=== PATIENT | female | born 1945 | race Caucasian/White ===

== ENCOUNTER 2021-02-10 19:26 | Inpatient (IN) | payer MEDICARE ==
--- NOTE | 2021-02-10 20:09 | ED ---
General Adult HPI - General Chief complaint: Chest Pain Stated complaint: Chest Pain Time Seen by Provider: 02/10/21 19:53 Source: patient, RN notes reviewed, old records reviewed Mode of arrival: ambulatory - History of Present Illness Initial comments: 75-year-old female who had developed anterior chest pain approximately one hour prior to arrival. 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 She did report a mild discomfort in her upper back as well. She describes the pain as a discomfort. She did not vomit. No diaphoresis. She states she did not feel anxious at the time. She has no previous history of CAD. - Related Data Allergies Allergy/AdvReac Type Severity Reaction Status Date / Time clindamycin Allergy Anaphylaxis Verified 02/10/21 19:44 ciprofloxacin [From Cipro] AdvReac Rash/Hives Verified 02/10/21 19:44 minocycline AdvReac Nausea & Verified 02/10/21 19:44 Vomiting & Diarrhea nitrofurantoin AdvReac Rash/Hives Verified 02/10/21 19:44 [From Macrobid] Review of Systems ROS Statement: Those systems with pertinent positive or pertinent negative responses have been documented in the HPI. ROS Other: All systems not noted in ROS Statement are negative. Past Medical History Past Medical History: Hyperlipidemia History of Any Multi-Drug Resistant Organisms: None Reported Past Surgical History: Hysterectomy, Orthopedic Surgery Past Psychological History: No Psychological Hx Reported Smoking Status: Never smoker Past Alcohol Use History: None Reported Past Drug Use History: None Reported General Exam General appearance: alert, in no apparent distress Head exam: Present: atraumatic, normocephalic Eye exam: Present: normal appearance, PERRL ENT exam: Present: normal exam Neck exam: Present: normal inspection. Absent: tenderness, meningismus Respiratory exam: Present: normal lung sounds bilaterally. Absent: respiratory distress, wheezes Cardiovascular Exam: Present: regular rate, normal rhythm GI/Abdominal exam: Present: soft. Absent: distended, tenderness, guarding Extremities exam: Present: normal inspection, normal capillary refill. Absent: pedal edema Neurological exam: Present: alert, oriented X3, CN II-XII intact. Absent: motor sensory deficit Psychiatric exam: Present: normal affect, normal mood Skin exam: Present: warm, dry, intact. Absent: cyanosis, diaphoretic Course Vital Signs 02/10/21 19:37 Temperature 98 F Pulse Rate 79 Respiratory 19 Rate Blood Pressure 154/88 O2 Sat by Pulse 99 Oximetry EKG Findings - EKG Comments: EKG Findings:: EKG: Normal sinus rhythm, left bundle branch block, rate of 81, [place] interval 156, QRS duration 144, QTC 464. Old for comparison. Does not meet Scarboza criteria. Medical Decision Making - Medical Decision Making 75-year-old female presenting with anterior chest pain. Patient well-appearing on initial evaluation with minimal discomfort. EKG is sinus rhythm without ST segment elevation. Chest x-ray is clear. She has a normal CBC, normal CMP, initial troponin is 1.8. The patient is reevaluated she states her pain is nearly completely resolved. I did discuss case both with the admitting physician Dr. Carrasquillo, and with the maintenance and engineering manager Dr. Arguelles. She's given aspirin, Lipitor, heparin in the emergency department. Echo will be ordered. - Lab Data Result diagrams: 02/10/21 20:05 02/10/21 20:05 Lab Results 02/10/21 02/10/21 02/10/21 Range/Units 20:05 20:05 20:05 WBC 7.7 (3.8-10.6) k/uL RBC 4.54 (3.80-5.40) m/uL Hgb 13.6 (11.4-16.0) gm/dL Hct 40.3 (34.0-46.0) % MCV 88.7 (80.0-100.0) fL MCH 30.0 (25.0-35.0) pg MCHC 33.8 (31.0-37.0) g/dL RDW 13.0 (11.5-15.5) % Plt Count 207 (150-450) k/uL MPV 8.2 Neutrophils % 66 % Lymphocytes % 27 % Monocytes % 3 % Eosinophils % 2 % Basophils % 1 % Neutrophils # 5.1 (1.3-7.7) k/uL Lymphocytes # 2.1 (1.0-4.8) k/uL Monocytes # 0.2 (0-1.0) k/uL Eosinophils # 0.2 (0-0.7) k/uL Basophils # 0.0 (0-0.2) k/uL PT 10.3 (9.0-12.0) sec INR 1.0 (<1.2) APTT 23.5 (22.0-30.0) sec Sodium 138 (137-145) mmol/L Potassium 3.1 L (3.5-5.1) mmol/L Chloride 98 (98-107) mmol/L Carbon Dioxide 29 (22-30) mmol/L Anion Gap 11 mmol/L BUN 23 H (7-17) mg/dL Creatinine 0.99 (0.52-1.04) mg/dL Est GFR (CKD-EPI)AfAm 65 (>60 ml/min/1.73 sqM) Est GFR (CKD-EPI)NonAf 57 (>60 ml/min/1.73 sqM) Glucose 161 H (74-99) mg/dL Calcium 9.9 (8.4-10.2) mg/dL Magnesium 1.8 (1.6-2.3) mg/dL Total Bilirubin 0.5 (0.2-1.3) mg/dL AST 31 (14-36) U/L ALT 21 (4-34) U/L Alkaline Phosphatase 100 (38-126) U/L Troponin I (0.000-0.034) ng/mL NT-Pro-B Natriuret Pep pg/mL Total Protein 8.0 (6.3-8.2) g/dL Albumin 4.4 (3.5-5.0) g/dL Lipase 104 (23-300) U/L 02/10/21 02/10/21 Range/Units 20:05 20:05 WBC (3.8-10.6) k/uL RBC (3.80-5.40) m/uL Hgb (11.4-16.0) gm/dL Hct (34.0-46.0) % MCV (80.0-100.0) fL MCH (25.0-35.0) pg MCHC (31.0-37.0) g/dL RDW (11.5-15.5) % Plt Count (150-450) k/uL MPV Neutrophils % % Lymphocytes % % Monocytes % % Eosinophils % % Basophils % % Neutrophils # (1.3-7.7) k/uL Lymphocytes # (1.0-4.8) k/uL Monocytes # (0-1.0) k/uL Eosinophils # (0-0.7) k/uL Basophils # (0-0.2) k/uL PT (9.0-12.0) sec INR (<1.2) APTT (22.0-30.0) sec Sodium (137-145) mmol/L Potassium (3.5-5.1) mmol/L Chloride (98-107) mmol/L Carbon Dioxide (22-30) mmol/L Anion Gap mmol/L BUN (7-17) mg/dL Creatinine (0.52-1.04) mg/dL Est GFR (CKD-EPI)AfAm (>60 ml/min/1.73 sqM) Est GFR (CKD-EPI)NonAf (>60 ml/min/1.73 sqM) Glucose (74-99) mg/dL Calcium (8.4-10.2) mg/dL Magnesium (1.6-2.3) mg/dL Total Bilirubin (0.2-1.3) mg/dL AST (14-36) U/L ALT (4-34) U/L Alkaline Phosphatase (38-126) U/L Troponin I 1.830 H* (0.000-0.034) ng/mL NT-Pro-B Natriuret Pep 200 pg/mL Total Protein (6.3-8.2) g/dL Albumin (3.5-5.0) g/dL Lipase (23-300) U/L Critical Care Time Critical Care Time: Yes Total Critical Care Time: 35 Disposition Clinical Impression: Acute non-ST elevation myocardial infarction (NSTEMI) Disposition: [facility] Condition: Stable Is patient prescribed a controlled substance at d/c from ED?: No Referrals: Nonstaff,Physician [Primary Care Provider] - 1-2 days Decision to Admit Reason: Admit from EC Decision Date: 02/10/21 Decision Time: 21:51
[2021-02-10] MEDS ORDERED: ASPIRIN 325 MG TAB PO STA (20:10)
[2021-02-10 20:38] LABS: Basophils % (A) 1 %; Eosinophils # (A) 0.2 k/uL (0-0.7); Eosinophils % (A) 2 %; HCT 40.3 % (34.0-46.0); HGB 13.6 gm/dL (11.4-16.0); Lymphocytes # (A) 2.1 k/uL (1.0-4.8); Lymphocytes % (A) 27 %; MCHC 33.8 g/dL (31.0-37.0); MCV 88.7 fL (80.0-100.0); Mean Platelet Volume 8.2; Monocytes # (A) 0.2 k/uL (0-1.0); Monocytes % (A) 3 %; Neutrophils # (A) 5.1 k/uL (1.3-7.7); Neutrophils % (A) 66 %; Platelet Count 207 k/uL (150-450); RBC 4.54 m/uL (3.80-5.40); WBC 7.7 k/uL (3.8-10.6)
[2021-02-10 20:40] LABS: Albumin 4.4 g/dL (3.5-5.0); Calcium 9.9 mg/dL (8.4-10.2); Magnesium 1.8 mg/dL (1.6-2.3); Potassium 3.1 mmol/L (3.5-5.1); Total Bilirubin 0.5 mg/dL (0.2-1.3)
[2021-02-10 20:44] LABS: Partial Thromboplastin Time 23.5 sec (22.0-30.0); Prothrombin Time 10.3 sec (9.0-12.0)
[2021-02-10] MEDS ORDERED: POTASSIUM CHLORIDE ER 20 MEQ TAB.ER PO STA (21:05)
--- NOTE | 2021-02-10 21:16 | XR ---
EXAMINATION TYPE: XR chest 2V DATE OF EXAM: 02/10/2021 COMPARISON: NONE HISTORY: Chest pain TECHNIQUE: 2 views FINDINGS: Heart is normal. Lungs are clear of infiltrate. There is no heart failure. There are no hil ar masses. Thoracic aorta is atheromatous. There are chest leads. IMPRESSION: No active cardiopulmonary disease. Normal heart.
[2021-02-10] MEDS ORDERED: HEPARIN SODIUM 1,000 UN/ML (10ML VL) IV ONE (21:34)
[2021-02-10] MEDS ORDERED: HEPARIN SODIUM 1,000 UN/ML (10ML VL) IV PRN (21:34)
[2021-02-10] MEDS ORDERED: NITROGLYCERIN SL TABS 0.4 MG TAB SUBLINGUAL PRN (21:34)
[2021-02-10] MEDS ORDERED: HEPARIN SOD,PORK IN 0.45% NACL 25,000 UNIT in 0.45% NACL 1 250ML.BAG IV SCH (21:45)
[2021-02-11] MEDS: ATORVASTATIN 80 MG TAB PO SCH ×2 (00:12→08:24)
[2021-02-11] MEDS ORDERED: SODIUM CHLORIDE 0.9% 1,000 ML IV ONE (01:17)
[2021-02-11] MEDS ORDERED: LIDOCAINE 1% INJ 10MG/ML (20 ML MDV) ONE (01:29)
[2021-02-11] MEDS ORDERED: VERAPAMIL 2.5 MG/ML 2 ML AMP ONE (01:30)
[2021-02-11] MEDS ORDERED: fentaNYL (PF) 50 MCG/ML 2 ML AMP ONE (01:31)
[2021-02-11] MEDS ORDERED: fentaNYL (PF) 50 MCG/ML 2 ML AMP IV ONE (01:32)
[2021-02-11] MEDS ORDERED: LIDOCAINE 1% INJ 10MG/ML (20 ML MDV) SQ ONE (01:35)
[2021-02-11] MEDS ORDERED: VERAPAMIL SYRINGE (5 MG/10 ML) INTRAARTER ONE (01:37)
[2021-02-11] MEDS ORDERED: HEPARIN SODIUM 1,000 UN/ML (10ML VL) ONE (01:44)
[2021-02-11] MEDS ORDERED: MIDAZOLAM 2 MG/2 ML VIAL IV ONE (01:45)
[2021-02-11] MEDS ORDERED: CLOPIDOGREL 75 MG TAB ONE (01:51)
[2021-02-11] MEDS ORDERED: CLOPIDOGREL 75 MG TAB PO ONE (01:52)
[2021-02-11] MEDS ORDERED: IOPAMIDOL-370 125ML BTL INJ ONE (01:52)
[2021-02-11] MEDS ORDERED: RX INFO: IV CONTRAST WAS GIVEN 1 EACH MISC MISCELLANE PRN (02:03)
[2021-02-11] MEDS ORDERED: SODIUM CHLORIDE 0.9% 1,000 ML IV SCH (02:15)
[2021-02-11 02:27] LABS: Glucose,Whole Blood 137 mg/dL (75-99)
--- NOTE | 2021-02-11 02:31 | P.HPIM ---
History of Present Illness H&P Date: 02/10/21 The patient is 75-year-old female with a PMH of hyperlipidemia who presented to the emergency room with sudden onset of chest pain. 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 She denied having any associated symptoms including shortness of breath, nausea, diaphoresis, or palpitations. She told her who brought her into the emergency room. At time of interview, the patient reports that her pain has improved to a 2 out of 10 but continues to be aching, nonradiating, and co nstant. She denied any additional complaints. Denied fever, chills, cough. Denied headaches, weakness, numbness, tingling. Denied a personal history of heart disease but does state that she has a significant family history of heart disease with multiple first and second-degree relatives passing away early in life from heart attacks. Chest x-ray in the emergency room was unremarkable. EKG revealed a normal sinus rhythm at 81 bpm with a left bundle branch block (no prior EKGs available for comparison). Laboratory evaluation was remarkable for potassium 3.1 and troponin I of 1.830. The patient was started on heparin infusion and given aspirin and admitted for further management. Review of systems: Pertinent positives and negatives as discussed in HPI, a complete review of systems was performed and all other systems are negative. Physical examination: General: non toxic, no distress, appears at stated age, overweight Derm: no unusual rashes/lesions no unusual ecchymoses, warm, dry Head: atraumatic, normocephalic, symmetric Eyes: EOMI, no lid lag, anicteric sclera, pupils equal round reactive to light ENT: Nose and ears atraumatic, no thrush, no pharyngeal erythema Neck: No thyromegaly, no cervical lymphadenopathy, trachea midline, supple Mouth: no lip lesion, mucus membranes moist Cardiovascular: S1S2 reg, no murmur, positive posterior tibial pulse bilateral, no edema, capillary refill less than 2 seconds Lungs: CTA bilateral, no rhonchi, no rales , no accessory muscle use Abdominal: soft, nontender to palpation, no guarding, no appreciable organomegaly, normal bowel sounds Ext: no gross muscle atrophy, muscle strength 5 out of 5 in all 4 extremities grossly, no contractures, Neuro: CN II-XI grossly intact, light touch intact all 4 extremities, finger to nose within normal limits, Psych: Alert, oriented, appropriate affect Assessment/plan Non-ST elevation PR -Continue to trend troponin -Continue with heparin infusion, aspirin, statin -Cardiology consulted -Cardiac monitoring Hypokalemia -Replace and monitor DVT prophylaxis -Heparin infusion The patient is admitted with an anticipated greater than 2 midnight stay for evaluation of NSTEMI CODE STATUS: Full Code Discussed with: Patient Anticipated discharge date: 2-[address]: Home Past Medical History Past Medical History: Hyperlipidemia History of Any Multi-Drug Resistant Organisms: None Reported Past Surgical History: Hysterectomy, Orthopedic Surgery Past Psychological History: No Psychological Hx Reported Smoking Status: Never smoker Past Alcohol Use History: None Reported Past Drug Use History: None Reported - Past Family History Father Family Medical History: Coronary Artery Disease (CAD) Medications and Allergies Home Medications Medication Instructions Recorded Confirmed Type Latanoprost/Pf [Latanoprost 0.005% 1 drop BOTH EYES HS 02/10/21 02/10/21 History Eye Drop] Levothyroxine Sodium [Synthroid] 50 mcg PO DAILY 02/10/21 02/10/21 History Omeprazole [PriLOSEC] 20 mg PO DAILY 02/10/21 02/10/21 History aMILoride/HYDROCHLOROTHIAZIDE 1 tab PO DAILY 02/10/21 02/10/21 History [aMILoride/HYDROCHLOROTHIAZIDE 5-50 mg] Allergies Allergy/AdvReac Type Severity Reaction Status Date / Time clindamycin Allergy Anaphylaxis Verified 02/10/21 19:44 ciprofloxacin [From Cipro] AdvReac Rash/Hives Verified 02/10/21 19:44 minocycline AdvReac Nausea & Verified 02/10/21 19:44 Vomiting & Diarrhea nitrofurantoin AdvReac Rash/Hives Verified 02/10/21 19:44 [From Macrobid] Physical Exam Vitals: Vital Signs Temp Pulse Resp BP Pulse Ox 02/10/21 23:11 84 18 140/99 94 L 02/10/21 19:37 98 F 79 19 154/88 99 Intake and Output 02/10/21 02/10/21 02/11/21 14:59 22:59 06:59 Other: Weight 86.183 kg Results CBC & Chem 7: 02/10/21 20:05 02/10/21 20:05 Labs: Abnormal Lab Results - Last 24 Hours (Table) 02/10/21 02/10/21 Range/Units 20:05 20:05 Potassium 3.1 L (3.5-5.1) mmol/L BUN 23 H (7-17) mg/dL Glucose 161 H (74-99) mg/dL Troponin I 1.830 H* (0.000-0.034) ng/mL
[2021-02-11] MEDS: POTASSIUM CHLORIDE 20 MEQ in WATER FOR INJECTION 1 100ML.BAG IVPB SCH ×2 (02:37→10:10)
[2021-02-11 03:19] LABS: Basophils # (A) 0.1 k/uL (0-0.2); Basophils % (A) 1 %; Eosinophils # (A) 0.2 k/uL (0-0.7); Eosinophils % (A) 2 %; HGB 14.3 gm/dL (11.4-16.0); Lymphocytes % (A) 17 %; MCH 29.9 pg (25.0-35.0); MCHC 34.1 g/dL (31.0-37.0); MCV 87.7 fL (80.0-100.0); Mean Platelet Volume 8.4; Monocytes # (A) 0.3 k/uL (0-1.0); Monocytes % (A) 3 %; Neutrophils % (A) 77 %; Platelet Count 234 k/uL (150-450); RBC 4.79 m/uL (3.80-5.40); RDW 13.6 % (11.5-15.5); WBC 11.7 k/uL (3.8-10.6)
[2021-02-11] MEDS: POTASSIUM CHLORIDE ER 20 MEQ TAB.ER PO SCH ×4 (04:05→10:07)
[2021-02-11 04:13] LABS: Partial Thromboplastin Time 117.9 sec (22.0-30.0)
[2021-02-11] MEDS: LEVOTHYROXINE 50 MCG TAB PO SCH (05:54)
[2021-02-11] MEDS: METOPROLOL TARTRATE 25 MG TAB PO SCH ×2 (08:25→20:56)
[2021-02-11] MEDS: CLOPIDOGREL 75 MG TAB PO SCH (08:25)
[2021-02-11] MEDS: ASPIRIN 81 MG PO SCH (08:25)
[2021-02-11] MEDS ORDERED: lisinopriL 5 MG TAB PO SCH (09:00)
[2021-02-11] MEDS ORDERED: ASPIRIN 325 MG TAB PO SCH (09:00)
[2021-02-11] MEDS ORDERED: FUROSEMIDE 20 MG TAB PO SCH (09:00)
[2021-02-11] MEDS: SPIRONOLACTONE 25 MG TAB PO SCH ×2 (10:08→11:29)
--- NOTE | 2021-02-11 10:39 | CONS ---
CONSULTATION Mrs. Rosas is a 75-year-old female who was visiting our area from [place]. She has no history of cardiac disease. She was in a wedding, and after having an emotional time, she felt chest discomfort that persisted. She came into the emergency room. At the time of her evaluation initially, according to the emergency room, her pain had almost resolved. She had an EKG consistent with left bundle branch block. Her troponin was 1. During the night, patient had some worsening chest discomfort and some T-wave inversions in the lateral leads on her EKG. In view of that, the patient was further evaluated. The patient is usually active physically, has no exertional chest discomfort or dyspnea. She denies any dizziness or palpitations. No syncope. No PND, orthopnea or peripheral edema. She has no history of hypertension, hyperlipidemia or diabetes. No family history of premature coronary artery disease and she is a nonsmoker. MEDICATIONS: Her medications at home include Synthroid, omeprazole and hydrochlorothiazide. REVIEW OF SYSTEMS: RESPIRATORY SYSTEM: She has no documented history of asthma, emphysema. GI SYSTEM: No recent GI bleeding. No peptic ulcer disease. SYSTEM: No dysuria or hematuria. NERVOUS SYSTEM: No history of stroke or seizure. PHYSICAL EXAMINATION: She is a 75-year-old female, alert, oriented, in no apparent distress. Blood pressure running initially in the 150s with a heart rate in the 90s. Patient was examined in the cardiac catheterization laboratory. HEAD: Normocephalic. EYES: Sclerae anicteric. NECK: Good carotid upstroke. No bruit. No jugular venous distention. LUNGS: Clear to auscultation. HEART: Regular rate and rhythm. S1, S2. No S3. No rub or gallop. ABDOMEN: Soft, nontender. Positive bowel sounds. No organomegaly. EXTREMITIES: No edema. Intact distal pulses. LAB DATA: Initial troponin 1.8; subsequently 5.0. NT proBNP of 200. BUN and creatinine 23 and 0.99. Potassium 3.1, hemoglobin of 13.6, white blood cells of 7.7. EKG revealed a left bundle branch block with left axis deviation and nonspecific ST-T wave changes. Subsequent EKG showed T-wave inversion in the lateral precordial leads with persistent intraventricular conduction delay. IMPRESSION: 1. Myocardial infarction. Patient has left bundle branch block of unknown duration. There is evolution of her EKG and she has some worsening chest discomfort. 2. Hypothyroidism. RECOMMENDATIONS: From the cardiac standpoint, I have recommend proceeding with coronary angiography to assess her status and guide her treatment. The rationale behind the procedure, its risks and complications were discussed with the patient, who was in full understanding and agreement. Thank you for this consult. Will follow with you. SONIA / REBECA: [id number] / LIZ
--- NOTE | 2021-02-11 10:42 | CC ---
CARDIAC CATHETERIZATION REPORT Mrs. Rosas is a 75-year-old female who presented to the emergency room with symptoms of chest discomfort. She had a left bundle branch block of unknown duration. Initial troponin was 1. Subsequently she had some worsening chest discomfort and T-wave inversion in the lateral precordial leads. In view of that, recommendation was made regarding cardiac catheterization. The procedure as well as its risks and complications were discussed with the patient, who was in full understanding and agreement. PROCEDURE DESCRIPTION: The patient was brought to the specialist employee labor relations after receiving fentanyl and Benadryl and achieving a moderate conscious sedated state. Using Xylocaine anesthesia and Seldinger technique, a 6-Luxembourger sheath was introduced in the right radial artery. Selective right and left coronary angiography was performed using 5-Luxembourger 3.5 bend right Patricia and 6-Luxembourger FL3.5 guiding catheter. Multiple views were taken of the arteries, including hemiaxial views. Following that, a 5-Luxembourger tight pigtail catheter was introduced in the left ventricle and a 30-degree BELLAMY view of the left ventricle was obtained. Following that, catheter and sheath were removed. Hemostasis was obtained with deployment of a TR band. There was no immediate complication. Patient was returned to her room in stable condition. Of note, the patient received 4500 units of intravenous heparin and intraarterial verapamil. FINDINGS: LEFT MAIN: This is a large-sized vessel bifurcating into left circumflex and left anterior descending artery. Left main coronary artery has no evidence of obstructive coronary artery disease. LEFT ANTERIOR DESCENDING ARTERY: This is a large-sized vessel reaching to the apex with a wrap around the apex segment. The left anterior descending artery gives rise to two diagonal branches of moderate caliber. The left anterior descending artery has a 10% plaque proximally. The rest of the vessel has no high-grade stenosis. LEFT CIRCUMFLEX: This is a large nondominant vessel giving rise to three obtuse marginal branches. The second and third ones are large in caliber. The left circumflex as well as its branches have no evidence of obstructive coronary artery disease. RIGHT CORONARY ARTERY: This is a large dominant vessel bifurcating distally into PDA and posterolateral segment and branches. The right coronary artery as well as its branches have no evidence of obstructive coronary artery disease. LEFT VENTRICULOGRAM: Left ventriculogram was performed in 30-degree BELLAMY view and revealed severe hypokinesis involving the mid anterior, anteroapical and inferoapical quijano. The ejection fraction is estimated at 20% to 25%. There was no significant mitral regurgitation. The only quijano that have good motion were the basal wall. HEMODYNAMICS: There was no gradient across the aortic valve. The left ventricular end- diastolic pressure was 20 to 25 mmHg. CONCLUSION: 1. Minimal plaque in the proximal LAD. 2. Severely impaired left ventricular systolic function. RECOMMENDATIONS: Those findings are consistent with takotsubo syndrome. At this time I will maximize her medical therapy with a combination of JEREMIAS inhibitor, beta dragan and statin. I reviewed those findings with the patient and her over the phone. They are in full understanding and agreement. Duration of sedation was 16 minutes. SONIA / KATELINN: [id number] /
[2021-02-11 11:14] LABS: Chol/HDL Ratio 3.84 Ratio; HDL Cholesterol 58.6 mg/dL (40.00-60.00); LDL Cholesterol,Calculated 149.4 mg/dL (0.0-131.0); Triglycerides 84.9 mg/dL (0.00-149.00); VLDL Calculation 16.98 mg/dL (5.00-40.00)
--- NOTE | 2021-02-11 11:28 | PN ---
PROGRESS NOTE Ms. Rosas is a 75-year-old female with no prior history of cardiac disease who presented to the emergency room with symptoms of chest discomfort after attending a wedding. In the emergency room her initial troponin was mildly elevated. Subsequently, on repeat lab data, her troponin was higher. She subsequently underwent a cardiac catheterization that revealed normal coronary arteries with evidence of a takotsubo syndrome. She is feeling well today. This morning her chest discomfort has resolved. She denies any dizziness or palpitation. She denies any nausea. She continues to be in sinus mechanism. She continues on aspirin once a day, Lipitor 80 mg daily, Plavix 75 mg daily, lisinopril 5 mg twice a day, metoprolol tartrate 25 mg twice a day and spironolactone 25 mg daily. PHYSICAL EXAMINATION: Blood pressure 115/80 with a heart rate in the 80s. LUNGS: Clear. HEART: Regular rhythm S1, S2. No S3. No rub. ABDOMEN: Soft, nontender. EXTREMITIES: No edema. Right radial pulse intact. LAB DATA: Lab data revealed a hemoglobin of 14.3. IMPRESSION: 1. Takotsubo syndrome. 2. Severe cardiomyopathy. RECOMMENDATIONS: We will continue on the present therapy. Follow her renal function. Increase her level activity. If she is stable I would expect she should be able to transfer to telemetry floor in the afternoon. She will have an echocardiogram done tomorrow. Depending on her blood pressure, her JEREMIAS inhibitor dose and beta dragan will be adjusted. The diuretic dose may be able to be decreased depending on her progress. MMODL / KATELINN: [id number] /
--- NOTE | 2021-02-11 13:30 | P.PN ---
Subjective Patient was seen and evaluated by me this morning. She is still complaining of mild discomfort in her chest but nothing compared to the pain that she was having yesterday. She underwent left heart catheterization with no significant coronary artery disease. No acute events overnight reported to me by nursing staff. Objective - Vital Signs Vital signs: Vital Signs Temp 97.8 F 02/11/21 12:00 Pulse 67 02/11/21 13:15 Resp 15 02/11/21 13:15 BP 78/55 02/11/21 13:15 Pulse Ox 97 02/11/21 13:15 Intake & Output 02/10/21 02/11/21 02/11/21 18:59 06:59 18:59 Intake Total 565 525 Output Total 475 330 Balance 90 195 Weight 87.6 kg Intake: IV 325 525 Sodium Chloride 0.9% 1, 225 525 000 ml @ 75 mls/hr IV . [id number] [facility] Rx#:[id number] Oral 240 Output: Urine 475 330 Other: Voiding Method Bedside Commode Bedside Commode # Voids 1 0 - Exam General: The patient is awake and alert, in no distress Eye: there is normal conjunctiva bilaterally. Neck: The neck is supple, there is no JVD. Cardiovascular: Normal S1-S2, no S3-S4, no murmurs. Respiratory: Lungs clear to auscultation bilaterally Gastrointestinal: Abdomen is soft, nontender Musculoskeletal: There is no pedal edema. Neurological:. Speech is normal. Skin: Skin is warm and dry - Labs CBC & Chem 7: 02/11/21 03:02 02/10/21 20:05 Labs: Abnormal Lab Results - Last 24 Hours (Table) 02/10/21 02/10/21 02/10/21 Range/Units 20:05 20:05 22:27 WBC (3.8-10.6) k/uL Neutrophils # (1.3-7.7) k/uL APTT (22.0-30.0) sec Potassium 3.1 L (3.5-5.1) mmol/L BUN 23 H (7-17) mg/dL Glucose 161 H (74-99) mg/dL POC Glucose (mg/dL) (75-99) mg/dL Troponin I 1.830 H* 5.090 H* (0.000-0.034) ng/mL Cholesterol (0.00-200.00) mg/dL LDL Cholesterol, Calc (0.0-131.0) mg/dL 02/11/21 02/11/21 02/11/21 Range/Units 02:24 03:02 03:02 WBC 11.7 H (3.8-10.6) k/uL Neutrophils # 9.0 H (1.3-7.7) k/uL APTT 117.9 H* (22.0-30.0) sec Potassium (3.5-5.1) mmol/L BUN (7-17) mg/dL Glucose (74-99) mg/dL POC Glucose (mg/dL) 137 H (75-99) mg/dL Troponin I (0.000-0.034) ng/mL Cholesterol (0.00-200.00) mg/dL LDL Cholesterol, Calc (0.0-131.0) mg/dL 02/11/21 02/11/21 02/11/21 Range/Units 03:02 03:02 09:42 WBC (3.8-10.6) k/uL Neutrophils # (1.3-7.7) k/uL APTT (22.0-30.0) sec Potassium (3.5-5.1) mmol/L BUN (7-17) mg/dL Glucose (74-99) mg/dL POC Glucose (mg/dL) (75-99) mg/dL Troponin I 4.150 H* 3.340 H* (0.000-0.034) ng/mL Cholesterol 225.00 H (0.00-200.00) mg/dL LDL Cholesterol, Calc 149.4 H (0.0-131.0) mg/dL Assessment and Plan Assessment: The patient is 75-year-old female with a PMH of hyperlipidemia who presented to the emergency room with sudden onset of chest pain. Patient was evaluated in the ER and admitted to the hospital for further management of her medical problems noted below. 1. Non-ST elevation NV 2. Nonischemic cardiomyopathy with ejection fraction of 20-25% and suspected Takotsubo cardiomyopathy 3. Hyperlipidemia Patient was seen and evaluated by cardiology. She underwent left heart catheterization showing minimal uptake in the proximal LAD with no significant coronary artery disease otherwise. Echocardiogram ordered and pending. Patient was started on optimal medical management with aspirin, Plavix, Lipitor, metoprolol, lisinopril. Blood pressure on the borderline lower side. We will continue to monitor closely. Repeat lab work in the morning.
[2021-02-11] MEDS ORDERED: Potassium Replacement Protocol 1 EACH MISC MISCELLANE PRN (15:40)
[2021-02-11] MEDS ORDERED: POTASSIUM CHLORIDE ER 20 MEQ TAB.ER PO SCH (16:00)
[2021-02-12 04:31] LABS: Calcium 8.5 mg/dL (8.4-10.2)
[2021-02-12] MEDS: LEVOTHYROXINE 50 MCG TAB PO SCH (06:45)
--- NOTE | 2021-02-12 08:03 | P.PN ---
Subjective HISTORY OF PRESENTING ILLNESS This is a pleasant 75 -year-old female who presented with chest pain during a wedding where she was given a sentimental gift to her great niece. She had heart catheterization secondary to non-STEMI which showed no significant disease. She has been doing well without any chest pain or pressure. She has been placed on dual antiplatelets, no hematochezia or melena. PHYSICAL EXAMINATION Vital signs reviewed. CONSTITUTIONAL: No apparent distress. HEENT: Head is normocephalic. Pupils are equal, round. Sclerae anicteric. Mucous membranes of the mouth are moist. No JVD. No carotid bruit. CHEST EXAMINATION: Lungs are clear to auscultation. No chest wall tenderness is noted on palpation or with deep breathing. HEART EXAMINATION: Regular rate and rhythm. S1, S2 heard. No murmurs, gallops or rub. ABDOMEN: Soft, nontender. Positive bowel sounds. EXTREMITIES: 2+ peripheral pulses, no lower extremity edema and no calf tenderness. NEUROLOGIC EXAMINATION: Patient is awake, alert and oriented x3. ASSESSMENT 1. Non-STEMI, secondary to Takotsubo's cardiomyopathy 2. Acute on chronic systolic heart failure with ejection fraction 20-25% PLAN Optimize heart failure regimen as able. Patient cleared for transfer from the ICU. His been almost 48 hours and hopeful discharge tomorrow morning if patient remains hemodynamically stable. No further chest pain and continue to monitor. Check 2-D echo. Objective - Vital Signs Vital signs: Vital Signs Temp 97.9 F 02/12/21 04:00 Pulse 68 02/12/21 07:00 Resp 17 02/12/21 07:00 BP 86/47 02/12/21 07:00 Pulse Ox 97 02/12/21 07:00 Intake & Output 02/11/21 02/12/21 02/12/21 18:59 06:59 18:59 Intake Total 675 480 Output Total 330 500 Balance 345 -20 Weight 89.1 kg Intake: IV 675 Sodium Chloride 0.9% 1, 675 000 ml @ 75 mls/hr IV . [id number] [facility] Rx#:[id number] Oral 480 Output: Urine 330 500 Other: Voiding Method Bedside Commode Bedside Commode # Voids 0 0 0 - Labs CBC & Chem 7: 02/11/21 03:02 02/12/21 04:06 Labs: Abnormal Lab Results - Last 24 Hours (Table) 02/11/21 02/11/21 02/12/21 Range/Units 03:02 09:42 04:06 Sodium 134 L (137-145) mmol/L BUN 22 H (7-17) mg/dL Glucose 125 H (74-99) mg/dL Troponin I 3.340 H* (0.000-0.034) ng/mL Cholesterol 225.00 H (0.00-200.00) mg/dL LDL Cholesterol, Calc 149.4 H (0.0-131.0) mg/dL
[2021-02-12] MEDS ORDERED: FUROSEMIDE 20 MG TAB PO SCH (09:00)
[2021-02-12] MEDS: ASPIRIN 81 MG PO SCH (09:28)
[2021-02-12] MEDS: SPIRONOLACTONE 25 MG TAB PO SCH (09:28)
[2021-02-12] MEDS: ATORVASTATIN 80 MG TAB PO SCH (09:28)
[2021-02-12] MEDS: METOPROLOL TARTRATE 25 MG TAB PO SCH ×2 (09:28→21:13)
[2021-02-12] MEDS: CLOPIDOGREL 75 MG TAB PO SCH (09:28)
--- NOTE | 2021-02-12 10:59 | ECHOF ---
Referral Reason:NSTEMI MEASUREMENTS -------- HEIGHT: 172.7 cm WEIGHT: 88.9 kg BP: 87/59 RVIDd: 2.8 cm (< 3.3) IVSd: 1.3 cm (0.6 - 1.1) LVIDd: 4.2 cm (3.9 - 5.3) LVPWd: 1.3 cm (0.6 - 1.1) IVSs: 1.8 cm LVIDs: 2.9 cm LVPWs: 1.5 cm LA Diam: 3.3 cm (2.7 - 3.8) LAESV Index (A-L): 29.68 ml/m Ao Diam: 3.0 cm (2.0 - 3.7) AV Cusp: 1.7 cm (1.5 - 2.6) MV EXCURSION: 18.221 mm (> 18.000) MV EF SLOPE: 65 mm/s (70 - 150) EPSS: 0.7 cm MV E Jean: 1.04 m/s MV DecT: 248 ms MV A Jean: 1.22 m/s MV E/A Ratio: 0.85 AV maxP.98 mmHg AV meanP.55 mmHg RAP: 5.00 mmHg RVSP: 39.79 mmHg FINDINGS -------- Sinus rhythm. This was a technically adequate study. The left ventricular size is normal. There is mild concentric left ventricular hypertrophy. Overa ll left ventricular systolic function is mild-moderately impaired with, an EF between 40 - 45 %. Ap ical anterior LV wall motion is hypokinetic. Apical lateral LV wall motion is hypokinetic. Apic al inferior LV wall motion is hypokinetic. Apical septum LV wall motion is hypokinetic. The right ventricle is normal in size. LA is midly dilated 29-33ml/m2. The right atrium is normal in size. Interatrial and interventricular septum intact. The aortic valve is trileaflet, and appears structurally normal. No aortic stenosis or regurgitation. The mitral valve is normal. Mild tricuspid regurgitation present. There is mild pulmonary hypertension. The right ventricular systolic pressure, as measured by Doppler, is 39.79mmHg. The pulmonic valve was not well visualized. The aortic root size is normal. Normal inferior vena cava with normal inspiratory collapse consistent with estimated right atrial pre ssure of 5 mmHg. There is no pericardial effusion. CONCLUSIONS -------- 1. The left ventricular size is normal. 2. There is mild concentric left ventricular hypertrophy. 3. Overall left ventricular systolic function is mild-moderately impaired with, an EF between 40 - 45 %. 4. Apical anterior LV wall motion is hypokinetic. 5. Apical lateral LV wall motion is hypokinetic. 6. Apical inferior LV wall motion is hypokinetic. 7. Apical septum LV wall motion is hypokinetic. 8. LA is midly dilated 29-33ml/m2. 9. The aortic valve is trileaflet, and appears structurally normal. No aortic stenosis or regurgitati on. 10. The mitral valve is normal. 11. Mild tricuspid regurgitation present. 12. There is mild pulmonary hypertension. 13. The right ventricular systolic pressure, as measured by Doppler, is 39.79mmHg. 14. There is no pericardial effusion. ADDING MACHINE OPERATOR: Mildred Kruse RDCS
--- NOTE | 2021-02-12 16:16 | P.PN ---
Subjective Patient is doing well today. She does not have any concerns this morning. Objective - Vital Signs Vital signs: Vital Signs Temp 97.9 F 02/12/21 04:00 Pulse 68 02/12/21 07:00 Resp 17 02/12/21 08:00 BP 86/47 02/12/21 07:00 Pulse Ox 97 02/12/21 07:00 Intake & Output 02/11/21 02/12/21 02/12/21 18:59 06:59 18:59 Intake Total 675 480 Output Total 330 500 Balance 345 -20 Weight 89.1 kg Intake: IV 675 Sodium Chloride 0.9% 1, 675 000 ml @ 75 mls/hr IV . [id number] [facility] Rx#:[id number] Oral 480 Output: Urine 330 500 Other: Voiding Method Bedside Commode Bedside Commode Toilet # Voids 0 0 0 - Exam General: The patient is awake and alert, in no distress Eye: there is normal conjunctiva bilaterally. Neck: The neck is supple, there is no JVD. Cardiovascular: Normal S1-S2, no S3-S4, no murmurs. Respiratory: Lungs clear to auscultation bilaterally Gastrointestinal: Abdomen is soft, nontender Musculoskeletal: There is no pedal edema. Neurological:. Speech is normal. Skin: Skin is warm and dry - Labs CBC & Chem 7: 02/11/21 03:02 02/12/21 04:06 Labs: Abnormal Lab Results - Last 24 Hours (Table) 02/12/21 Range/Units 04:06 Sodium 134 L (137-145) mmol/L BUN 22 H (7-17) mg/dL Glucose 125 H (74-99) mg/dL Assessment and Plan Assessment: The patient is 75-year-old female with a PMH of hyperlipidemia who presented to the emergency room with sudden onset of chest pain. Patient was evaluated in the ER and admitted to the hospital for further management of her medical problems noted below. 1. Non-ST elevation CT 2. Nonischemic cardiomyopathy with suspected Takotsubo cardiomyopathy 3. Hyperlipidemia Patient was seen and evaluated by cardiology. She underwent left heart catheterization showing minimal uptake in the proximal LAD with no significant coronary artery disease otherwise. Echocardiogram showed EF of 40-45% with diffuse left ventricular wall motion hypokinesia. Patient was started on optimal medical management with aspirin, Plavix, Lipitor, metoprolol, lisinopril. Blood pressure on the borderline lower side. We will continue to monitor closely. Awaiting cardiology clearance for discharge
--- NOTE | 2021-02-13 08:05 | P.PN ---
Subjective HISTORY OF PRESENTING ILLNESS This is a pleasant 75 -year-old female who presented with chest pain during a wedding where she was given a sentimental gift to her great niece. She had heart catheterization secondary to non-STEMI which showed no significant disease. She has been doing well without any chest pain or pressure. She has been placed on dual antiplatelets, no hematochezia or melena. 02/13/21 Patient seen and examined. Patient denies any chest pain. She has been doing well walking the halls. No shortness of breath. Blood pressures borderline however no lightheadedness. Echo revealed improved ejection fraction 40-45% PHYSICAL EXAMINATION Vital signs reviewed. CONSTITUTIONAL: No apparent distress. HEENT: Head is normocephalic. Pupils are equal, round. Sclerae anicteric. Mucous membranes of the mouth are moist. No JVD. No carotid bruit. CHEST EXAMINATION: Lungs are clear to auscultation. No chest wall tenderness is noted on palpation or with deep breathing. HEART EXAMINATION: Regular rate and rhythm. S1, S2 heard. No murmurs, gallops or rub. ABDOMEN: Soft, nontender. Positive bowel sounds. EXTREMITIES: 2+ peripheral pulses, no lower extremity edema and no calf tenderness. NEUROLOGIC EXAMINATION: Patient is awake, alert and oriented x3. ASSESSMENT 1. Non-STEMI, secondary to Takotsubo's cardiomyopathy 2. Acute on chronic systolic heart failure with ejection fraction 20-25% PLAN Patient is doing well and echo shows somewhat improved ejection fraction to 40- 45%. Would suspect patient will do well with hopeful quick improvement in ejection fraction. Continue with heart failure regimen. Would continue with short course of dual antiplatelets however would consider short course given no significant coronary artery disease noted on heart catheterization. Patient cleared for discharge from a cardiac standpoint on current regimen. May also consider lowering Lipitor if she does not tolerate given no significant coronary artery disease. Objective - Vital Signs Vital signs: Vital Signs Temp 98 F 02/13/21 04:00 Pulse 61 02/13/21 04:00 Resp 15 02/13/21 04:00 BP 112/64 02/13/21 04:00 Pulse Ox 94 L 02/13/21 04:00 Intake & Output 02/12/21 02/13/21 02/13/21 18:59 06:59 18:59 Intake Total 800 Output Total 1200 Balance -400 Weight 91 kg Intake: Oral 800 Output: Urine 1200 Other: Voiding Method Toilet # Voids 0 3 - Labs CBC & Chem 7: 02/11/21 03:02 02/12/21 04:06
[2021-02-13] MEDS: LEVOTHYROXINE 50 MCG TAB PO SCH (08:46)
[2021-02-13] MEDS: ASPIRIN 81 MG PO SCH (08:46)
[2021-02-13] MEDS: ATORVASTATIN 80 MG TAB PO SCH (08:46)
[2021-02-13] MEDS: CLOPIDOGREL 75 MG TAB PO SCH (08:46)
[2021-02-13] MEDS: SPIRONOLACTONE 25 MG TAB PO SCH (08:47)
[2021-02-13] MEDS: METOPROLOL TARTRATE 25 MG TAB PO SCH (08:48)
[2021-02-13 09:11] VITALS: BP 121/80; PULSE 72; RESP 16; TEMP 98.5
--- NOTE | 2021-02-13 09:15 | P.DS ---
Providers Date of admission: 02/10/21 21:44 Expected date of discharge: 02/13/21 Attending physician: Loki Carrasquillo MD Consults: 02/10/21 21:44 Consult Physician Urgent Consulting Provider: Samara Arguelles Consult Reason/Comments: NSTEMI Do you want consulting provider notified?: Already Contacted Primary care physician: Physician Nonsta Hospital Course: The patient is 75-year-old female with a PMH of hyperlipidemia who presented to the emergency room with sudden onset of chest pain. Patient was evaluated in the ER and admitted to the hospital for further management of her medical problems noted below. 1. Non-ST elevation [place] 2. Nonischemic cardiomyopathy with suspected Takotsubo cardiomyopathy 3. Hyperlipidemia Patient was seen and evaluated by cardiology. She underwent left heart catheterization showing minimal uptake in the proximal LAD with no significant coronary artery disease otherwise. Echocardiogram showed EF of 40-45% with diffuse left ventricular wall motion hypokinesia. Patient was started on optimal medical management with aspirin, Plavix, Lipitor, metoprolol, lisinopril. Patient was cleared by cardiology for discharge home. She will follow-up with her sand system operator out of town. I would sand system operator recommended ''short course''dual antiplatelet therapy. I give the patient 30 day supply. She will follow-up with her sand system operator as directed. Physical exam: General: The patient is awake and alert, in no distress Eye: there is normal conjunctiva bilaterally. Neck: The neck is supple, there is no JVD. Cardiovascular: Normal S1-S2, no S3-S4, no murmurs. Respiratory: Lungs clear to auscultation bilaterally Gastrointestinal: Abdomen is soft, nontender Musculoskeletal: There is no pedal edema. Neurological:. Speech is normal. Skin: Skin is warm and dry Patient Condition at Discharge: Stable Plan - Discharge Summary Discharge Rx Participant: No New Discharge Prescriptions: New Spironolactone [Aldactone] 25 mg PO DAILY #30 tab Atorvastatin [Lipitor] 80 mg PO DAILY #30 tab Clopidogrel [Plavix] 75 mg PO DAILY #30 tab Aspirin 81 mg PO DAILY #30 tab Metoprolol Tartrate [Lopressor] 25 mg PO BID #60 tab lisinopriL [Zestril] 2.5 mg PO DAILY #30 tab Continue Latanoprost/Pf [Latanoprost 0.005% Eye Drop] 1 drop BOTH EYES HS Levothyroxine Sodium [Synthroid] 50 mcg PO DAILY Omeprazole [PriLOSEC] 20 mg PO DAILY Discontinued aMILoride/HYDROCHLOROTHIAZIDE [aMILoride/HYDROCHLOROTHIAZIDE 5-50 mg] 1 tab PO DAILY Discharge Medication List Latanoprost/Pf [Latanoprost 0.005% Eye Drop] 1 drop BOTH EYES HS 02/10/21 [History] Levothyroxine Sodium [Synthroid] 50 mcg PO DAILY 02/10/21 [History] Omeprazole [PriLOSEC] 20 mg PO DAILY 02/10/21 [History] Aspirin 81 mg PO DAILY #30 tab 02/13/21 [Rx] Atorvastatin [Lipitor] 80 mg PO DAILY #30 tab 02/13/21 [Rx] Clopidogrel [Plavix] 75 mg PO DAILY #30 tab 02/13/21 [Rx] Metoprolol Tartrate [Lopressor] 25 mg PO BID #60 tab 02/13/21 [Rx] Spironolactone [Aldactone] 25 mg PO DAILY #30 tab 02/13/21 [Rx] lisinopriL [Zestril] 2.5 mg PO DAILY #30 tab 02/13/21 [Rx] Follow up Appointment(s)/Referral(s): Nonstaff,Physician [Primary Care Provider] - 1-2 days Discharge Disposition: HOME SELF-CARE
== END 2021-02-13 12:04 | disposition home or self-care (01) | DRG 280 ==
LOC: EC 19:26 → 3SCARD 21:44 → 2SICU 02-11 01:17
PROVIDERS: ADMIT Internal Medicine; ATTEND Internal Medicine
PROC: B2111ZZ Fluoroscopy of Multiple Coronary Arteries using Low Osmolar Contrast (ICD-10-PCS; principal; 2021-02-11 01:13)
PROC: B2151ZZ Fluoroscopy of Left Heart using Low Osmolar Contrast (ICD-10-PCS; principal; 2021-02-11 01:13)
PROC: 4A023N7 Measurement of Cardiac Sampling and Pressure, Left Heart, Percutaneous Approach (ICD-10-PCS; principal; 2021-02-11 01:13)
DX: I21.4 Non-ST elevation (NSTEMI) myocardial infarction (principal); I50.23 Acute on chronic systolic (congestive) heart failure; I42.8 Other cardiomyopathies; I45.2 Bifascicular block; I51.81 Takotsubo syndrome; E03.9 Hypothyroidism, unspecified; E87.6 Hypokalemia; E78.5 Hyperlipidemia, unspecified; Z79.82 Long term (current) use of aspirin; Z79.890 Hormone replacement therapy; Z79.899 Other long term (current) drug therapy; Z82.49 Family history of ischemic heart disease and other diseases of the circulatory system; Z90.710 Acquired absence of both cervix and uterus; Z98.890 Other specified postprocedural states; Z20.822 Contact with and (suspected) exposure to COVID-19; Z88.1 Allergy status to other antibiotic agents
CPT/HCPCS: 36415; 71046; 80048; 80053; 80061; 83690; 83735; 83880; 84132; 84484; 85025; 85610; 85730; 87635; 93005; 93306; 93458; 99291